=== PATIENT | female | born 1975 | race Caucasian/White ===

== ENCOUNTER 2016-12-08 14:53 | Emergency (ER) | payer BC ==
[~2016-12-08 14:53] MED LIST: AMOXICILLIN PO; BACTROBAN22 GM TP; CLINDAMYCIN HC300 MG PO; CLINDAMYCIN HCL1 GM; COLACE PO; FLEXERIL PO; IBUPROFEN800 MG PO; NO MEDICATIONS; NU-GAUZE1 BANDAG6 TP; OXYCODONE HCL5 MG PO; PERCOCET 5-3251 TAB PO; PERCOCET5/325 PO; PROTONIX PO; ROBAXIN500 MG PO; TYLENOL #3 PO; TYLOX 5/500 CAP1 CAP PO; VOLTAREN50 MG PO; VOLTAREN75 MG PO; ZYVOX600 MG PO; [UNRECOGNIZED DRUG - OTHER]
== END 2016-12-08 15:00 | disposition home or self-care (01) ==
LOC: SED 14:53
DX: K02.9 Dental caries, unspecified (principal); Z91.040 Latex allergy status; Z88.1 Allergy status to other antibiotic agents; Z88.5 Allergy status to narcotic agent; Z79.899 Other long term (current) drug therapy
CPT/HCPCS: 99282